=== PATIENT | male | born 1980 | race Caucasian/White ===

== ENCOUNTER 2025-08-10 06:26 | Emergency (ER) | payer SELFPAY ==
[2025-08-10 06:29] VITALS: BP 179/103
--- NOTE | 2025-08-10 06:35 | ED.GENMED ---
History of Present Illness
General
Chief Complaint: Blood Pressure Problem
Source: patient
Exam Limitations: none
Time Seen by Provider: 08/10/25 06:35
Nursing documentation reviewed up to this point in time: agreed with
History of Present Illness
History of Present Illness:
Patient is a 45-year-old male who past medical history of hypertension and depression presents to the ER for evaluation of elevated blood pressure. He reports he has a history of hypertension and takes Toprol 25 mg daily. For the past 2 weeks
however he has been under a lot of stress and he has noticed his blood pressure has been elevated. He was particularly concerned about his diastolic number as it has been over 100. He has ultimately dizzy and had headaches. He denies any visual
changes. Denies any chest pain shortness of breath.
Patient admits to being under a lot of stress was recently out of work and started a new job. He quit smoking in November. He does drink alcohol daily. His last drink was yesterday.
Phy Exam
General Physical Exam
General Presentation: no apparent distress
General age: appears stated age
General Skin: warm and dry
General Habitus: normal
General Mental: alert
General Hydration: appears well hydrated
Neurological Exam
Neurological Exam: alert and oriented x3
Musculoskeletal Exam
Musculoskeletal Exam: full ROM
Skin Exam
Skin Exam: normal color and warm/dry
Psychiatric Exam
Psychiatric Exam: normal mood/affect
Course
Orders/Labs/Results
Orders:
Orders
08/10/25 06:48
Electrocardiogram (*1) Stat
Reason for Study: Other
Other Reason for Exam: chest pain
CT Head W/o Iv Contrast Urgent
Comment:
Reason For Exam: headache ,elevated bp
Cardiac Monitoring- Treatment ONCE
EKG- Treatment ONCE
IV Insert/Care/Rem.- Treatment PRN
08/10/25 07:17
Complete Blood Count/With Diff Urgent
Comprehensive Metabolic Panel Urgent
Abnormal Lab Results
08/10/25
07:17
WBC 11.0 H 10^3/uL
(4.8-10.8)
RBC 3.88 L 10^6/uL
(4.70-6.10)
Hgb 12.7 L g/dL
(13.0-18.0)
Hct 36.7 L %
(39.0-52.0)
MCV 94.6 H fL
(80.0-94.0)
MCH 32.7 H pg
(27.0-31.0)
Abs Immat Gran (auto) 0.1 H 10^3/uL
(0-0.05)
Absolute Neuts (auto) 8.5 H 10^3/uL
(1.4-6.5)
Absolute Monos (auto) 1.1 H 10^3/uL
(0.1-0.6)
Immature Gran % 0.6 H %
(0-0.5)
Neutrophils % 77.3 H %
(42.2-75.2)
Lymphocytes % 11.8 L %
(20.5-51.1)
Monocytes % 9.8 H %
(1.7-9.3)
Glucose 101 H mg/dl
(70-99)
08/10/25 07:17
08/10/25 07:17
Vital Signs
Initial and Last Documented VS:
Initial Vital Signs
Temp Pulse Resp BP Pulse Ox
98.5 F 87 16 179/103 99
08/10/25 06:29 08/10/25 06:29 08/10/25 06:29 08/10/25 06:29 08/10/25 06:29
Last Documented Vital Signs
Temp Pulse Resp BP Pulse Ox
98.2 F 97 16 150/96 99
08/10/25 08:51 08/10/25 08:51 08/10/25 08:51 08/10/25 08:51 08/10/25 08:51
MDM/Problems Addressed
Differential Diagnosis Includes:
Not limited to hypertension
MDM/Problems Addressed:
Pt is a 45 yr old male with history of high blood pressure presents to the ER for elevated blood pressure. He has been under a lot of stress recently and noticed that his blood pressure has been high. He spontaneously checks it. He felt a little
dizzy. Denies any chest pain shortness of breath. He is anxious however and otherwise no acute distress denies any chest pain shortness of breath. He does report that he does not eat very healthy. He also drinks alcohol. Blood pressure
initially 179/103 however did improve though still mildly elevated. This does not require emergent treatment. CAT scan head done and negative normal kidney function no acute EKG findings. Patient does have a family doctor encouraged close
follow-up he is to continue on Toprol . will not change dose at this time will have him f/u with pcp .We did discuss stress relief, diet control. reviewed DASH diet.
Chronic conditions affecting care:
htn, depression /anxiety
*Radiology
Radiology exam reviewed: radiology read reviewed
*Pulse Oximetry
SaO2: 99
Oxygen Mode of Delivery: Room air
Patient hypoxic: no
*EKG
Interpreted by ED Provider?: Yes
Interpretation: normal
Heart Rate: 82
Rate: normal
Rhythm: sinus
Ischemia: no ischemia
*Critical Care Note
Total Time (30-74mins, 75-104mins- exclusive of procedures): Not Applicable
ED Attending Note
-
Portions of this chart may have been created with voice recognition software.� Occasional wrong word or��sound alike� substitutions may have occurred due to the inherent limitations of voice recognition software.
Discharge Plan
Departure
Patient Disposition: Home (Routine Discharge)
Date of Disposition: 08/10/25
Time of Disposition: 08:46
Patient with high blood pressure during this ER visit?: Yes
Condition: Fair
Covid-19: Not Applicable
Discharge Problem:
elevated blood pressure
Instructions: High Blood Pressure (DC), BLOOD PRESSURE
Prescriptions:
No Action
metoprolol succinate 25 mg Tablet Extended Release 24 Hr
25 mg PO DAILY
Referrals:
Edu Benavidez MD [Family Provider, Internal Medicine]
Activity Restrictions/Additional Instructions:
As discussed please follow-up with family doctor for further reevaluation of your blood pressure. Avoid salt follow the DASH diet. Continue to take your medications. Call your family doctor today for an appointment in the next several days and
return if any worsening of symptoms.
Interventions
Interventions:
*Risk Screen - Suicide Last Done: 08/10/25 06:29
*General Assessment Last Done: 08/10/25 07:07
*Neglect/Abuse Screening Last Done: 08/10/25 06:29
*ED- Fall Risk Assessment Last Done: 08/10/25 06:29
*ED COVID-19 Vaccine History Last Done: 08/10/25 06:29
*Nursing Disposition Last Done: 08/10/25 08:51
ED- Cardiac Assessment Last Done: 08/10/25 07:19
ED- Neurological Assessment Last Done: 08/10/25 07:19
ED- Pulmonary Assessment Last Done: 08/10/25 07:19
Discharge Date and Time
Discharge Date/Time: 08/10/25 08:56
Print Language: ITALIAN
[2025-08-10 06:38] VITALS: BP 160/105
[2025-08-10 06:41] VITALS: BP 172/102
[2025-08-10 07:04] VITALS: BMI 23.2
[2025-08-10 07:06] VITALS: BP 163/107
[2025-08-10 07:30] VITALS: BP 155/96
[2025-08-10 07:46] LABS: ALT (SGPT) 21 U/L (0-50); AST (SGOT) 20 U/L (17-59); Albumin 4.8 g/dl (3.5-5.0); Alkaline Phosphatase 62 U/L (38-126); Blood Urea Nitrogen 14 mg/dl (9-20); Calcium 9.8 mg/dl (8.4-10.2); Carbon Dioxide 24 mmol/L (22-30); Chloride 102 mmol/L (98-107); Estimated Creatinine Clearance 122 ml/min; Glucose 101 mg/dl (70-99); Potassium 4.0 mmol/L (3.5-5.1); Sodium 137 mmol/L (135-145); Total Protein 7.6 g/dl (6.3-8.2); eGFR > 60.00
[2025-08-10 07:58] LABS: Hematocrit 36.7 % (39.0-52.0); Hemoglobin 12.7 g/dL (13.0-18.0); Mean Corp Hgb Conc. 34.6 g/dL (33.0-37.0); Mean Corpuscular Volume 94.6 fL (80.0-94.0); Nucleated Red Blood Cells % 0 % (-); Platelet Count 239 10^3/uL (130-400); Red Cell Dist. Width 12.0 % (11.5-14.5)
[2025-08-10 08:51] VITALS: BP 150/96
== END 2025-08-10 08:56 | disposition home or self-care (01) ==
LOC: EMR 06:26
PROVIDERS: Nurse Practitioner; EMERGENCY PHYSICIAN Emergency Medicine; FAMILY PHYSICIAN Internal Medicine
DX: I10 Essential (primary) hypertension (principal); R42 Dizziness and giddiness; Z87.891 Personal history of nicotine dependence
CPT/HCPCS: 99284; 70450; 80053; 85025; 93005